=== PATIENT | female | born 1995 | race Two or more races ===

== ENCOUNTER 2018-05-06 10:47 | Day surgery (SDC) | payer OTHER ==
[2018-05-05 13:53] VITALS: BMI 29.1
[2018-05-06] MEDS ORDERED: LIDOCAINE VISCOUS 2% ORAL/TOP 20 ML UNIT-DOSE CUP ONE (11:10)
[2018-05-06] MEDS ORDERED: LIDOCAINE HCL/PF 2% SDV 5ML VIAL ONE (12:09)
[2018-05-06] MEDS ORDERED: PROPOFOL 20 ML ONE ×2 (12:09)
[2018-05-06] MEDS ORDERED: LIDOCAINE VISCOUS 2% ORAL/TOP 20 ML UNIT-DOSE CUP MM ONE ×2 (12:26→12:28)
[2018-05-06 13:00] VITALS: TEMP 98.5
[2018-05-06 13:06] VITALS: PULSE 82
--- NOTE | 2018-05-06 13:15 | ECHO ---
Name: TAJ AYALA Exam:Transesophageal Echocardiogram Study Date: 05/06/2018 12:17 PM Age: 22 yrs Reason For Study: VSD Height: 65 in Weight: 175 lb BSA: 1.9 m2 BP: 105/67 mmHg Doppler Measurements & Calculations MV V2 max: 73.9 cm/sec TR max brandon: 174.6 cm/sec MV max P.2 mmHg TR max P.2 mmHg MV V2 mean: 40.1 cm/sec MV mean P.81 mmHg MV V2 VTI: 14.2 cm Membranous VSD with left to right shunt Membranous VSD Procedure: A 2D transesophageal echocardiogram with color flow Doppler was performed. Informed consent for Transesophageal Echocardiogram, and use of a contrast agent as needed, was obtained prior to the proc edure. The patient was brought to the endoscopy suite in a fasting state. An intravenous line was placed. A topical anesthetic agent was used for oropharangeal anesthesia. A bite block was inserted. IV concious sedati on was administered using propafol. A multifrequency, multiplane transesopheageal echocardiographic endoscop e was inserted and manipulated in the standard fashion to achieve multiplane views. The usual views were ob tained; basal, mid-esophageal, transgastric and aortic views. The patient's vital signs, including blood pres sure, heart rate, pulse oximetry and cardiac rhythm were monitored throughout the procedure and remained st able. The patient tolerated the procedure well without evidence of orophangeal or esophageal trauma. There were no complications. The patient was in normal sinus rhythm during the exam. Left Ventricle The left ventricle is normal in size. Left ventricular systolic function is normal. No regional wall motion abnormalities noted. A membranous ventricular septal defect is present. Color flow Doppler is consist ent with a ventricular septal defect with left to right shunt flow. Atria The left atrial size is normal. No thrombus is detected in the left atrial appendage. No left atrial mass or thrombus visualized. Right atrial size is normal. A prominent eustachian valve is noted. Injection of contrast documented no interatrial shunt. Mitral Valve The mitral valve is normal in structure and function. There is trace mitral regurgitation. Tricuspid Valve The tricuspid valve is normal in structure and function. There is Trace to mild tricuspid regurgitati on. Aortic Valve The aortic valve is normal in structure and function. No aortic regurgitation is present. Pulmonic Valve The pulmonic valve is not well seen, but is grossly normal. There is no pulmonic valvular regurgitati on. Great Vessels No atherosclerotic plaque in thoracic aorta and aortic arch. Pericardium/Pluera There is no pericardial effusion. Interpretation Summary The left ventricle is normal in size. Left ventricular systolic function is normal. No regional wall motion abnormalities noted. A membranous ventricular septal defect is present. Color flow Doppler is consistent with a ventricular septal defect with left to right shunt flow. The left atrial size is normal. No thrombus is detected in the left atrial appendage. No left atrial mass or thrombus visualized. A prominent eustachian valve is noted. Injection of contrast documented no interatrial shunt. There is trace mitral regurgitation. There is Trace to mild tricuspid regurgitation. No atherosclerotic plaque in thoracic aorta and aortic arch There is no pericardial effusion. Membranous VSD with left to right shunt Membranous VSD Biju Hernandez MD 05/06/2018 01:14 PM
[2018-05-06 14:14] VITALS: BP 115/67
== END 2018-05-06 13:35 | disposition home or self-care (01) ==
LOC: JASU-ENDO 10:47
PROVIDERS: ATTEND Internal Medicine Cardiovascular Disease
PROC: B246ZZ4 Ultrasonography of Right and Left Heart, Transesophageal (ICD-10-PCS; principal; 2018-05-06 12:00)
DX: R01.1 Cardiac murmur, unspecified (principal)
CPT/HCPCS: 84703; 93312; 93325